=== PATIENT | male | born 1960 | race Caucasian/White ===

== ENCOUNTER 2016-08-20 00:34 | Observation (INO) | payer OTHER ==
[~2016-08-20] VITALS: Ht 182.9 cm; Wt 103.7 kg
[2016-08-20] VITALS (13 sets, daily range): BP systolic 107–167; BP diastolic 66–101; PULSE 59–68; RESP 15–20; TEMP 97.6–99.4; O2SAT 92–97
[~2016-08-20 00:34] MED LIST: AMLO5 PO; ASPI81 PO; ATAC32TA OR; CLOP75 PO; NEXI40CA PO; ROSU10 PO; TOPR100T15 PO
[2016-08-20] MEDS ORDERED: ROSU10 PO (00:52)
[2016-08-20] MEDS ORDERED: AMLO5 PO (00:54)
[2016-08-20] MEDS ORDERED: CAND32TA10 PO (00:54)
[2016-08-20] MEDS ORDERED: NEXI40CA PO (00:54)
[2016-08-20] MEDS ORDERED: ASPI81CH CHEW (00:54)
[2016-08-20] MEDS ORDERED: METO25TA6 PO (00:54)
[2016-08-20] MEDS ORDERED: ONDANSETRON HCL 4 MG/2 ML VIAL IV PUSH ONE (01:00)
[2016-08-20] MEDS ORDERED: HYDROmorphone HCL PF 1 MG/ML VIAL IV PUSH ONE ×2 (01:00→02:15)
[2016-08-20] MEDS ORDERED: SODIUM CHLOR 0.9% 1000 ML INJ 1,000 ML IV ONE (01:00)
[2016-08-20 01:16] LABS: AUTOMATED NEUTROPHIL # 10.6 TH/MM3 (1.8-7.7); BASOPHIL # 0.1 TH/MM3 (0-0.2); BASOPHIL % 0.5 % (0.0-2.0); EOSINOPHIL # 0.1 TH/MM3 (0-0.4); HEMATOCRIT 49.7 % (39.0-51.0); LYMPH % 10.4 % (9.0-44.0); LYMPHOCYTE # 1.3 TH/MM3 (1.0-4.8); MEAN CELL VOLUME 88.9 FL (80.0-100.0); MEAN CORPUSCULAR HEMOGLOBIN 29.6 PG (27.0-34.0); MEAN CORPUSCULAR HGB CONC 33.3 % (32.0-36.0); NEUT % 83.1 % (16.0-70.0); PLATELET COUNT 180 TH/MM3 (150-450); RED BLOOD COUNT 5.59 MIL/MM3 (4.50-5.90); RED CELL DISTRIBUTION WIDTH 12.5 % (11.6-17.2); WHITE BLOOD COUNT 12.7 TH/MM3 (4.0-11.0)
--- NOTE | 2016-08-20 01:18 | PD ---
HPI Chief Complaint: Abdominal Pain Time Seen by Provider: 00:58 Travel History International Travel<30 days: No Contact w/Intl Traveler<30days: No Traveled to known affect area: No History of Present Illness HPI 56-year-old male presents to the emergency department by private transportation the care of his primary care physician and friend Dr. Kulkarni. Patient has had progressively worsening abdominal pain since approximately 10:30 on Friday. Patient has had nausea and anorexia and episodes of vomiting. No hematemesis or coffee-ground emesis. No report of diarrhea. No reported dysuria frequency urgency or hematuria. No prior history of kidney stones. No abdominal surgeries. Patient does not report flank pain. Patient states pain is worsened with movement and ambulation. Patient presents for evaluation of possible appendicitis. Patient denies any chest pain or shortness of breath or sweats. Patient does have prior history of myocardial infarction with normal cardiac catheter reportedly in 2013. Patient is followed by Dr. Clarke. Patient rates pain as 8/10 in intensity and primarily right-sided. No prior history of peptic ulcer disease gastritis pancreatitis biliary colic no report of colitis or diverticulosis/diverticulitis. No fever or chills. PFSH Past Medical History Narrative Medical [place], dyslipidemia, hypertension, cardiac catheterization; no tobacco use, occasional alcohol use; family history premature onset heart disease; nursing notes reviewed Hx Anticoagulant Therapy: Yes (Baby aspirin daily) Heart Rhythm Problems: No Cancer: No Cardiovascular Problems: Yes (embolic [place] 2013) High Cholesterol: Yes Chest Pain: Yes Congestive Heart Failure: No Endocrine: No Genitourinary: No Immune Disorder: No Musculoskeletal: No Neurologic: No Psychiatric: No Reproductive: No Respiratory: No Social History Tobacco Use: No Allergies-Medications (Allergen,Severity, Reaction): Coded Allergies: Iodine (Verified Allergy, Unknown, 08/20/16) Shellfish (Verified Allergy, Unknown, 08/20/16) Sulfa (Verified Allergy, Unknown, 08/20/16) Reported Meds & Prescriptions Reported Meds & Active Scripts Active Reported Aspirin 81 Mg Chew 81 Mg CHEW DAILY Nexium (Esomeprazole DR) 40 Mg Capdr 40 Mg PO DAILY Candesartan (Candesartan Cilexetil) 32 Mg Tab 32 Mg PO DAILY Norvasc (Amlodipine Besylate) 5 Mg Tab 5 Mg PO DAILY Metoprolol Succinate ER 24 HR (Metoprolol Succinate) 25 Mg Tab 25 Mg PO DAILY Crestor (Rosuvastatin Calcium) 10 Mg Tab 10 Mg PO HS Review of Systems Except as stated in HPI: all other systems reviewed are Neg General / Constitutional: No: Fever, Chills HENT: No: Congestion Cardiovascular: No: Chest Pain or Discomfort Respiratory: No: Shortness of Breath Gastrointestinal: Positive: Nausea, Vomiting, Abdominal Pain, Loss of Appetite , No: Diarrhea Genitourinary: Positive: Flank Pain, No: Urgency, Frequency, Dysuria, Hematuria Musculoskeletal: No: Myalgias, Arthralgias Skin: No Rash Neurologic: No: Weakness Psychiatric: No: Anxiety Endocrine: No: Heat Intolerance Hematologic/Lymphatic: No: Easy Bruising Physical Exam Narrative GENERAL: Well-developed well-nourished male in obvious discomfort no respiratory distress; GCS 15 SKIN: Warm and dry. HEAD: Normocephalic. EYES: No scleral icterus. No injection or drainage. NECK: Supple, trachea midline. No JVD or lymphadenopathy. CARDIOVASCULAR: Regular rate and rhythm without murmurs, gallops, or rubs. RESPIRATORY: Breath sounds equal bilaterally. No accessory muscle use. GASTROINTESTINAL: Abdomen soft, tender to palpation right lower quadrant greater than right upper quadrant without rebound or guarding, nondistended. Positive heel strike pain. MUSCULOSKELETAL: No cyanosis, or edema. BACK: Nontender without obvious deformity. Mild right-sided CVA tenderness. Data Data Last Documented VS Vital Signs Date Time Temp Pulse Resp B/P Pulse Ox O2 Delivery O2 Flow Rate FiO2 08/20/16 02:50 65 17 119/81 96 Room Air 08/20/16 00:52 97.8 Orders Complete Blood Count With Diff (08/20/16 00:49) Comprehensive Metabolic Panel (08/20/16 00:49) Urinalysis - C+S If Indicated (08/20/16 00:49) Iv Access Insert/Monitor (08/20/16 00:49) Oximetry (08/20/16 00:49) Lipase (08/20/16 00:49) NPO (08/20/16 00:58) Ondansetron Inj (Zofran Inj) (08/20/16 01:00) Hydromorphone Pf Inj (Dilaudid Pf Inj) (08/20/16 01:00) Electrocardiogram (08/20/16 ) Ct Abd/Pel W/O Iv Contrast (08/20/16 ) Sodium Chlor 0.9% 1000 Ml Inj (Ns 1000 M (08/20/16 01:00) Ckmb (Isoenzyme) Profile (08/20/16 01:08) Troponin I (08/20/16 01:08) CKMB (08/20/16 01:08) CKMB% (08/20/16 01:08) Hydromorphone Pf Inj (Dilaudid Pf Inj) (08/20/16 02:15) Place In Observation (08/20/16 ) Vital Signs (Adult) Q4H (08/20/16 02:48) Activity Oob With Assistance (08/20/16 02:48) Motion Designer / Telemetry .CONTINUOUS (08/20/16 02:48) Diet Npo (08/20/16 Breakfast) Sodium Chlor 0.9% 1000 Ml Inj (Ns 1000 M (08/20/16 02:48) Sodium Chloride 0.9% Flush (Ns Flush) (08/20/16 03:00) Sodium Chloride 0.9% Flush (Ns Flush) (08/20/16 09:00) Ondansetron Inj (Zofran Inj) (08/20/16 03:00) Comprehensive Metabolic Panel (08/21/16 06:00) Complete Blood Count With Diff (08/21/16 06:00) Naloxone Inj (Narcan Inj) (08/20/16 03:00) Consult General Surgery (08/20/16 ) Admit Order (Ed Use Only) (08/20/16 ) ^ Saline Lock (08/20/16 02:49) Resp Oxygen Conner C Titrat 1-4 L (08/20/16 ) Notify Dr: Other (08/20/16 02:49) Sodium Chloride 0.9% Flush (Ns Flush) (08/20/16 09:00) Sodium Chloride 0.9% Flush (Ns Flush) (08/20/16 03:00) Morphine Inj (Morphine Inj) (08/20/16 03:00) Labs Laboratory Tests Test 08/20/16 01:08 White Blood Count 12.7 TH/MM3 Red Blood Count 5.59 MIL/MM3 Hemoglobin 16.6 GM/DL Hematocrit 49.7 % Mean Corpuscular Volume 88.9 FL Mean Corpuscular Hemoglobin 29.6 PG Mean Corpuscular Hemoglobin 33.3 % Concent Red Cell Distribution Width 12.5 % Platelet Count 180 TH/MM3 Mean Platelet Volume 10.6 FL Neutrophils (%) (Auto) 83.1 % Lymphocytes (%) (Auto) 10.4 % Monocytes (%) (Auto) 5.0 % Eosinophils (%) (Auto) 1.0 % Basophils (%) (Auto) 0.5 % Neutrophils # (Auto) 10.6 TH/MM3 Lymphocytes # (Auto) 1.3 TH/MM3 Monocytes # (Auto) 0.6 TH/MM3 Eosinophils # (Auto) 0.1 TH/MM3 Basophils # (Auto) 0.1 TH/MM3 CBC Comment AUTO DIFF Differential Comment AUTO DIFF CONFIRMED Platelet Estimate NORMAL Platelet Morphology Comment CLUMPED Red Cell Morphology Comment NORMAL Urine Color NOLVIA Urine Turbidity CLEAR Urine pH 5.5 Urine Specific Holl[place] 1.030 Urine Protein TRACE mg/dL Urine Glucose (UA) NEG mg/dL Urine Ketones NEG mg/dL Urine Occult Blood LARGE Urine Nitrite NEG Urine Bilirubin NEG Urine Leukocyte Esterase NEG Urine RBC 25-49 /hpf Urine WBC 0-2 /hpf Urine Squamous Epithelial 0-5 /hpf Cells Urine Mucus MOD /lpf Microscopic Urinalysis Comment CULT NOT INDICATED Sodium Level 143 MEQ/L Potassium Level 3.8 MEQ/L Chloride Level 107 MEQ/L Carbon Dioxide Level 27.5 MEQ/L Anion Gap 9 MEQ/L Blood Urea Nitrogen 21 MG/DL Creatinine 1.50 MG/DL Estimat Glomerular Filtration 49 ML/MIN Rate Random Glucose 151 MG/DL Calcium Level 9.5 MG/DL Total Bilirubin 0.5 MG/DL Aspartate Amino Transf 22 U/L (AST/SGOT) Alanine Aminotransferase 32 U/L (ALT/SGPT) Alkaline Phosphatase 85 U/L Total Creatine Kinase 212 U/L Creatine Kinase MB 2.5 NG/ML Troponin I 0.02 NG/ML Total Protein 7.5 GM/DL Albumin 4.4 GM/DL Lipase 77 U/L [facility] Medical Decision Making Medical Screen Exam Complete: Yes Emergency Medical Condition: Yes Medical Record Reviewed: Yes Interpretation(s) EKG normal sinus rhythm rate [address] elevation however inverted T waves anterolaterally are noted Last Impressions Abdomen/Pelvis CT 08/20/16 0000 Signed Impressions: Service Date/Time: Saturday, August 20, 2016 01:17 - CONCLUSION: 1. The appendix diameter is above normal limits, measuring 9 mm. Cannot exclude appendicitis. There is no induration of the fat about the appendix however. 2. 2 mm calcified stone in the distal right ureter causing mild dilation of the right ureter, but no hydronephrosis. No additional stones seen in the collecting system of the right kidney. Yobany Finch MD CBC & BMP Diagram 08/20/16 01:08 UA: large blood troponin I: less than 0.02, not elevated Differential Diagnosis Abdominal pain, appendicitis, renal colic, cholelithiasis, diverticulitis, UTI; also to consider colitis and aortic aneurysm/dissection Narrative Course Patient placed on business development professional IV access obtained specimens collected and sent for resulting EKG performed in view of patient's prior history although at this time no chest pain; no acute ST elevation or injury pattern change noted however patient is identified to have indurated T waves anterolaterally age- indeterminate no ST segment depression; patient administered Zofran 4 mg IV along with Dilaudid 0.5 mg IV maintenance IV fluids and CT abdomen and pelvis ordered CT abdomen and pelvis performed as a noncontrast study in view of large blood noted on urinalysis and flank pain on exam as well as right lower quadrant abdominal pain also patient with reported anaphylaxis reaction to iodine and shellfish. CT abdomen and pelvis consistent with upper limit of normal appendix 9 mm unable to exclude appendicitis however no. Appendiceal stranding also identified to have a 2 mm distal right ureteral stone with hydroureter but no evidence of hydronephrosis. Patient's case discussed with on-call general surgeon food does not feel patient needs to be admitted to the surgical service at this time for appendicitis after he has had the opportunity to review the imaging study on his own suspicious that patient's symptoms are related to his ureterolithiasis. Patient continues to have pain and has had vomiting primary care provider/bedside public relations account executive Dr. Kulkarni is concerned about intractable pain and therefore patient recommended for observation admission. Call placed to [facility] service and patient graciously accepted by Dr. Lee for OBS admission with consult to gen Surgery. Critical Care Narrative Aggregate critical care time was 40 minutes. Time to perform other separately billable procedures was not included in the critical care time. My time did not include minutes spent treating any other patients simultaneously or on activities that did not directly contribute to the patient's treatment. The services I provided to this patient were to treat and/or prevent clinically significant deterioration that could result in: Sepsis, peritonitis, I provided critical care services requiring my management, as noted below: Chart data review, documentation time, medication orders and management, vital sign assessments/reviewing monitor data, ordering and reviewing lab tests, ordering and interpreting/reviewing x-rays and diagnostic studies, care of the patient and discussion of the patient with the admitting physicians. Physician Communication Physician Communication discused with Dr Contreras; discused with Dr Parker; discussed with Dr Lee Diagnosis Primary Impression: Intractable abdominal pain Additional Impressions: Ureterolithiasis Abdominal pain, acute, right lower quadrant Renal insufficiency Admitting Information Admitting Physician Requests: Observation Alia Santiago MD Aug 20, 2016 01:18
[2016-08-20 01:20] LABS: BLOOD, URINE LARGE (NEG); GLUCOSE,URINE NEG (NEG); KETONE, URINE NEG (NEG); NITRITE,URINE NEG (NEG); PH, URINE 5.5 (5.0-8.5)
[2016-08-20 01:22] LABS: HEMO FLAGS AUTO DIFF
[2016-08-20 01:24] LABS: CHLORIDE 107 MEQ/L (98-107); POTASSIUM 3.8 MEQ/L (3.5-5.1); SODIUM (NA) 143 MEQ/L (136-145)
[2016-08-20 01:26] LABS: URINE COLOR AMBER (YELLW/STRAW)
[2016-08-20 01:27] LABS: ANION GAP 9 MEQ/L (5-15); BICARBONATE 27.5 MEQ/L (21.0-32.0); MUCUS URINE MOD /lpf (OCC); SQUAMOUS EPITHELIAL CELL URINE 0-5 /hpf (0-5)
[2016-08-20 01:28] LABS: BLOOD UREA NITROGEN 21 MG/DL (7-18); COMMENT (UR) CULT NOT INDICATED; CULTURE IF INDICATED CULT NOT INDICATED; WBC, URINE 0-2 /hpf (0-5)
[2016-08-20 01:30] LABS: ALT (GPT) 32 U/L (12-78); AST (GOT) 22 U/L (15-37); GLOMERULAR FILTRATION RATE 49 ML/MIN (>89)
[2016-08-20 01:32] LABS: TOTAL BILIRUBIN ADULT 0.5 MG/DL (0.2-1.0)
[2016-08-20 01:33] LABS: ALKALINE PHOSPHATASE 85 U/L (45-117)
[2016-08-20 01:44] LABS: PLATELET ESTIMATE SMEAR NORMAL (NORMAL); PLATELET MORPHOLOGY CLUMPED (NORMAL); SCAN/DIFF AUTO DIFF CONFIRMED
[2016-08-20 01:52] LABS: CREATINE KINASE 212 U/L (39-308)
--- NOTE | 2016-08-20 01:54 | RADRPT ---
EXAM DATE/TIME: 08/20/2016 01:17 [place] COMPARISON: No previous studies available for comparison. INDICATIONS : Right lower quadrant pain. ORAL CONTRAST: No oral contrast ingested. RADIATION DOSE: 19.14 CTDIvol (mGy) MEDICAL HISTORY : Hypertension. Cardiovascular disease SURGICAL HISTORY : None. ENCOUNTER: Initial ACUITY: 1 day PAIN SCALE: 7/10 LOCATION: Right lower quadrant TECHNIQUE: Volumetric scanning of the abdomen and pelvis was performed. Using automated exposure control and ad justment of the mA and/or kV according to patient size, radiation dose was kept as low as reasonably achievable to obtain optimal diagnostic quality images. DICOM format image data is available electro nically for review and comparison. FINDINGS: LOWER LUNGS: The visualized lower lungs are clear. LIVER: Homogeneous density without lesion for noncontrast technique. There is no dilation of the biliary tr ee. No calcified gallstones. SPLEEN: Normal size without lesion. PANCREAS: Within normal limits. KIDNEYS: Normal in size and shape. There is no mass, stone, or hydronephrosis. There is a 2 mm calcification in the distal right ureter, best seen on axial image #73. The right ureter proximal to the calcifie d stone is mildly dilated. No periureteral induration. ADRENAL GLANDS: Within normal limits. VASCULAR: There is no aortic aneurysm. BOWEL/MESENTERY: No dilated loops of small or large bowel. A mild amount of stool seen in the right colon. The appen bev is identified in the right lower quadrant and measures up to 9 mm in width. The fat about the ap pendix has a normal configuration and there is some gas seen within the lumen of the proximal appendi x, but no gas seen in the mid or distal appendix. ABDOMINAL WALL: Within normal limits. RETROPERITONEUM: There is no lymphadenopathy. BLADDER: No wall thickening or mass. REPRODUCTIVE: Within normal limits. INGUINAL: There is no lymphadenopathy or hernia. MUSCULOSKELETAL: Within normal limits for patient age. CONCLUSION: 1. The appendix diameter is above normal limits, measuring 9 mm. Cannot exclude appendicitis. There is no induration of the fat about the appendix however. 2. 2 mm calcified stone in the distal right ureter causing mild dilation of the right ureter, but no hydronephrosis. No additional stones seen in the collecting system of the right kidney. Yobany Finch MD on August 20, 2016 at 1:41 Board Certified Radiologist. This report was verified electronically.
[2016-08-20 02:04] LABS: CKMB 2.5 NG/ML (0.5-3.6)
[2016-08-20] MEDS ORDERED: MORPHINE SULFATE 8 MG/ML INJ IV PUSH PRN (03:00)
[2016-08-20] MEDS ORDERED: ONDANSETRON HCL 4 MG/2 ML VIAL IVP PRN (03:00)
[2016-08-20] MEDS ORDERED: SODIUM CHLORIDE 0.9% FLUSH 10 ML FLUSH IV FLUSH PRN (03:00)
[2016-08-20] MEDS ORDERED: NALOXONE HCL 0.4 MG/ML AMP IV PRN (03:00)
[2016-08-20] MEDS ORDERED: SODIUM CHLORIDE 0.9% FLUSH 10 ML FLUSH IVF PRN (03:00)
[2016-08-20] MEDS ORDERED: KETOROLAC TROMETHAMINE 30 MG/ML (IVP) VIAL IV PUSH ONE (03:00)
[2016-08-20] MEDS: SODIUM CHLOR 0.9% 1000 ML INJ 1,000 ML IV SCH ×3 (03:08→18:22)
[2016-08-20] MEDS: SODIUM CHLORIDE 0.9% FLUSH 10 ML FLUSH IV FLUSH SCH ×2 (08:04→21:37)
[2016-08-20] MEDS ORDERED: SODIUM CHLORIDE 0.9% FLUSH 10 ML FLUSH IV FLUSH SCH (09:00)
[2016-08-20] MEDS ORDERED: traMADol HCL 50 MG TAB PO PRN (11:30)
--- NOTE | 2016-08-20 11:49 | PD.PN.STU ---
Subjective Remarks Patient is 56 year old male admitted for evaluation of acute intractable right sided abdominal pain. Patient states that his pain started yesterday morning as cramping abdominal pain that got progressively worse. His pain is localized to his right side and occasionally radiates to the inside of his right hip. Pain was an 8/10, described as sharp and intermittent. He vomiting 4 times at home yesterday, denies hematemesis. He denied dysuria, urinary frequency or anuria. Denies back pain or flank pain. Denies diarrhea. Denies fevers, chills, muscle aches or recent illness. Pain is worse with movement. He had a decreased appetite but was able to eat a sandwich last night without vomiting. No history of kidney stones. No abdominal surgeries. In the ED an abdominal CT was done and showed 2.2 mm calcified renal stone in the right ureter with mild dilatation of the right ureter. Appendix was measured to be 9mm which is above normal limits and unable to rule out appendicitis. Today his pain is controlled with Tramadol 50mg po, currently the pain is a 2/ 10. He does not have an appetite but is thirsty. Denies nausea or vomiting. Denies chest pain or shortness of breath. PMH: Myocardial infarction 3 years ago with cardiac catheterization, followed by Dr. Clarke. Hypertension Dyslipidemia Medications: Aspirin 81 Mg Chew 81 Mg CHEW DAILY Nexium (Esomeprazole DR) 40 Mg Capdr 40 Mg PO DAILY Candesartan (Candesartan Cilexetil) 32 Mg Tab 32 Mg PO DAILY Norvasc (Amlodipine Besylate) 5 Mg Tab 5 Mg PO DAILY Metoprolol Succinate ER 24 HR (Metoprolol Succinate) 25 Mg Tab 25 Mg PO DAILY Crestor (Rosuvastatin Calcium) 10 Mg Tab 10 Mg PO HS Surgical history: Social: occasional social alcohol use. Denies tobacco or illicit drug use. Family history: Dad- heart disease Brother- heart disease Allergies: Shell fish Iodine Sulfa Objective Vitals Vital Signs Date Time Temp Pulse Resp B/P Pulse Ox O2 Delivery O2 Flow Rate FiO2 08/20/16 06:58 97.6 67 16 147/83 97 Room Air 08/20/16 05:18 66 15 113/75 96 Room Air 08/20/16 03:55 97.8 68 17 123/72 95 Room Air 08/20/16 03:54 17 08/20/16 03:26 96 21 6/27/17 02:50 65 17 119/81 96 Room Air 08/20/16 02:40 17 08/20/16 02:13 61 16 132/77 94 Room Air 08/20/16 01:23 60 17 134/86 Room Air 08/20/16 00:52 97.8 66 18 137/88 97 I/O 08/19/16 08/19/16 08/19/16 08/20/16 08/20/16 08/20/16 07:00 15:00 23:00 07:00 15:00 23:00 Intake Total 1000 ml Output Total 50 ml Balance 1000 ml -50 ml Intake IV Total 1000 ml Output Urine Total 50 ml # Voids 1 Result Diagram: 08/20/16 0108 08/20/16 010 Imaging Vital Signs, 24 Hour Date Time Temp Pulse Resp B/P Pulse Ox O2 Delivery O2 Flow Rate FiO2 08/20/16 06:58 97.6 67 16 147/83 97 Room Air 08/20/16 05:18 66 15 113/75 96 Room Air 08/20/16 03:55 97.8 68 17 123/72 95 Room Air 08/20/16 03:54 17 08/20/16 03:26 96 21 08/20/16 02:50 65 17 119/81 96 Room Air 08/20/16 02:40 17 08/20/16 02:13 61 16 132/77 94 Room Air 08/20/16 01:23 60 17 134/86 Room Air 08/20/16 00:52 97.8 66 18 137/88 97 Allergies Coded Allergies Iodine (Verified Allergy, Unknown, 08/20/16) Shellfish (Verified Allergy, Unknown, 08/20/16) Sulfa (Verified Allergy, Unknown, 08/20/16) Intake/Outtake 08/20/16 08/20/16 11:00 23:00 Intake Total 1000 ml Output Total 50 ml Balance 950 ml Laboratory Tests per Malena Test 08/20/16 01:08 White Blood Count 12.7 TH/MM3 Red Blood Count 5.59 MIL/MM3 Sodium Level 143 MEQ/L Potassium Level 3.8 MEQ/L Blood Urea Nitrogen 21 MG/DL Recent Impressions Abdomen/Pelvis CT 08/20/16 0000 Signed Impressions: Service Date/Time: Saturday, August 20, 2016 01:17 - CONCLUSION: 1. The appendix diameter is above normal limits, measuring 9 mm. Cannot exclude appendicitis. There is no induration of the fat about the appendix however. 2. 2 mm calcified stone in the distal right ureter causing mild dilation of the right ureter, but no hydronephrosis. No additional stones seen in the collecting system of the right kidney. Yobany Finch MD Active Scripts Active Reported Aspirin 81 Mg Chew 81 Mg CHEW DAILY Nexium (Esomeprazole DR) 40 Mg Capdr 40 Mg PO DAILY Candesartan (Candesartan Cilexetil) 32 Mg Tab 32 Mg PO DAILY Norvasc (Amlodipine Besylate) 5 Mg Tab 5 Mg PO DAILY Metoprolol Succinate ER 24 HR (Metoprolol Succinate) 25 Mg Tab 25 Mg PO DAILY Crestor (Rosuvastatin Calcium) 10 Mg Tab 10 Mg PO HS Objective Remarks GENERAL: well appearing male in no acute distress SKIN: Warm and dry. HEAD: Normocephalic. EYES: No scleral icterus. No injection or drainage. NECK: Supple, trachea midline. No JVD or lymphadenopathy. CARDIOVASCULAR: Regular rate and rhythm without murmurs, gallops, or rubs. RESPIRATORY: Breath sounds equal bilaterally. No accessory muscle use. GASTROINTESTINAL: Abdomen soft, nondistended. Moderate abdominal pain elicited with palpation of right lower quadrant. No rebound tenderness or guarding. MUSCULOSKELETAL: No cyanosis, or edema. BACK: Nontender without obvious deformity. No CVA tenderness. A/P Assessment and Plan 1. Intractable abdominal pain - most likely due to ureterolithiasis - CT scan showed 2.2 mm right uretal stone with mild dilatation of right ureter. Appendix 9mm. - improved with IV NS and tramadol 50mg - continue supportive care and pain management, follow WBC count and vital signs - Recheck CBC and BMP in am 2. Hyperglycemia - no history of diabetes - check Hb A1C 3. MARY - Creatinine 1.5 - most likely due to dehydration and vomiting - continue IV NS and monitor trend, avoid nephrotoxins Stephanie Cantu M3 Aug 20, 2016 11:49
--- NOTE | 2016-08-20 17:22 | EKG ---
Date Performed: 08/20/2016 Time Performed: 01:12:52 PTAGE: 56 years EKG: Sinus rhythm LOW QRS VOLTAGE IN EXTREMITY LEADS MODERATE T-WAVE ABNORMALITY, CONSIDER ANTEROLATERAL ISCHEMIA ABNO RMAL ECG PREVIOUS TRACING : 11/09/2013 05.39 Compared to prior tracing no significant change DOCTOR: Alexander Daley Interpretating Date/Time 08/20/2016 17:19:53
[2016-08-20] MEDS ORDERED: KETOROLAC TROMETHAMINE 30 MG/ML (IVP) VIAL IV PUSH PRN ×2 (18:30)
--- NOTE | 2016-08-20 18:35 | HHI.HP ---
HPI Service [facility] Hospitalists Primary Care Physician Blake Kulkarni MD Admission Diagnosis intractable pain; 2mm ureterolithiasis; RLQ pain Diagnoses: Chief Complaint: Right lower quadrant abdominal pain Travel History International Travel<30 Days: No Contact w/Intl Traveler <30 Da: No Traveled to Known Affected Are: No History of Present Illness Deferred entry, patient seen earlier at around noon. This is a 56-year-old male who presented to [facility] complaining of right lower quadrant abdominal pain. Patient states pain started the day prior to admission and it is described as a colicky, cramping, sharp pain that progressively got worst. The pain is localized to the right lower quadrant and occasionally radiates down to the right hip. Patient states pain was severe 8/ 10 in intensity. Associated with nausea and vomiting 4 times yesterday. The patient however denies hematemesis. He denies dysuria, urinary frequency or anuria. The patient denies fevers or chills, diarrhea. The patient states he has decreased appetite but was able to eat a sandwich last night without vomiting. Patient denies history of kidney stones, no abdominal surgeries. Patient states that pain is better when compared to when he presented to this hospital. In the ED the patient had an abdominal CT which was done and showed 2.2 mm calcified renal stone in the right ureter with mild dilatation of the right ureter. Appendix was measured to be 9 mm which is above normal limits and unable to rule out appendicitis. The patient kept having intractable abdominal pain and therefore was placed under observation by the emergency department physician. Review of Systems As per history of present illness, other systems reviewed by me and negative Past Family Social History Past Medical History Myocardial infarction 3 years ago with cardiac catheterization Hypertension Hyperlipidemia Past Surgical History Denies any previous abdominal surgeries. Reported Medications Aspirin 81 Mg Chew 81 Mg CHEW DAILY Nexium (Esomeprazole DR) 40 Mg Capdr 40 Mg PO DAILY Candesartan (Candesartan Cilexetil) 32 Mg Tab 32 Mg PO DAILY Norvasc (Amlodipine Besylate) 5 Mg Tab 5 Mg PO DAILY Metoprolol Succinate ER 24 HR (Metoprolol Succinate) 25 Mg Tab 25 Mg PO DAILY Crestor (Rosuvastatin Calcium) 10 Mg Tab 10 Mg PO HS Allergies: Coded Allergies: Iodine (Verified Allergy, Unknown, 08/20/16) Shellfish (Verified Allergy, Unknown, 08/20/16) Sulfa (Verified Allergy, Unknown, 08/20/16) Active Ordered Medications Current Medications Medications (Trade) Dose Ordered Sig/Susy Route Start Time Stop Time Status Last Admin (NS 1000 ml Inj) 1,000 ml @ 125 mls/hr Q8H IV 08/20/16 02:48 08/20/16 11:17 (NS Flush) 2 ml UNSCH PRN IV FLUSH 08/20/16 03:00 (NS Flush) 2 ml BID IV FLUSH 08/20/16 09:00 (Zofran Inj) 4 mg Q6H PRN IVP 08/20/16 03:00 (Narcan Inj) 0.4 mg UNSCH PRN IV 08/20/16 03:00 (Morphine Inj) 2 mg Q3H PRN IV PUSH 08/20/16 03:00 (Ultram) 50 mg Q4H PRN PO 08/20/16 11:30 08/20/16 15:32 Family History Patient's father and brother had heart disease. Social History The patient denies tobacco use. Admits to social alcohol. Denies illicit drug use. Physical Exam Vital Signs Vital Signs Date Time Temp Pulse Resp B/P Pulse Ox O2 Delivery O2 Flow Rate FiO2 08/20/16 16:33 98.2 59 18 167/101 96 08/20/16 12:24 97.6 62 19 144/93 95 08/20/16 08:00 96 21 08/20/16 06:58 97.6 67 16 147/83 97 Room Air 08/20/16 05:18 66 15 113/75 96 Room Air 08/20/16 03:55 97.8 68 17 123/72 95 Room Air 08/20/16 03:54 17 08/20/16 03:26 96 21 08/20/16 02:50 65 17 119/81 96 Room Air 08/20/16 02:40 17 08/20/16 02:13 61 16 132/77 94 Room Air 08/20/16 01:23 60 17 134/86 Room Air 08/20/16 00:52 97.8 66 18 137/88 97 Physical Exam GENERAL: This is a well-nourished, well-developed patient, in no apparent distress. SKIN: No rashes, ecchymoses or lesions. Cool and dry. HEAD: Atraumatic. Normocephalic. No temporal or scalp tenderness. EYES: Pupils equal round and reactive. Extraocular motions intact. No scleral icterus. No injection or drainage. ENT: Nose without bleeding, purulent drainage or septal hematoma. Throat without erythema, tonsillar hypertrophy or exudate. Uvula midline. Airway patent. NECK: Trachea midline. No JVD or lymphadenopathy. Supple, nontender, no meningeal signs. CARDIOVASCULAR: Regular rate and rhythm without murmurs, gallops, or rubs. RESPIRATORY: Clear to auscultation. Breath sounds equal bilaterally. No wheezes , rales, or rhonchi. GASTROINTESTINAL: Abdomen soft, moderately tender to palpation in the right lower quadrant, nondistended. No hepato-splenomegaly, or palpable masses. No guarding. MUSCULOSKELETAL: Extremities without clubbing, cyanosis, or edema. No joint tenderness, effusion, or edema noted. No calf tenderness. Negative Homans sign bilaterally. NEUROLOGICAL: Awake and alert. Cranial nerves II through XII intact. Motor and sensory grossly within normal limits. Five out of 5 muscle strength in all muscle groups. Normal speech. Laboratory Laboratory Tests Test 08/20/16 01:08 White Blood Count 12.7 Red Blood Count 5.59 Hemoglobin 16.6 Hematocrit 49.7 Mean Corpuscular Volume 88.9 Mean Corpuscular Hemoglobin 29.6 Mean Corpuscular Hemoglobin 33.3 Concent Red Cell Distribution Width 12.5 Platelet Count 180 Mean Platelet Volume 10.6 Neutrophils (%) (Auto) 83.1 Lymphocytes (%) (Auto) 10.4 Monocytes (%) (Auto) 5.0 Eosinophils (%) (Auto) 1.0 Basophils (%) (Auto) 0.5 Neutrophils # (Auto) 10.6 Lymphocytes # (Auto) 1.3 Monocytes # (Auto) 0.6 Eosinophils # (Auto) 0.1 Basophils # (Auto) 0.1 CBC Comment AUTO DIFF Differential Comment AUTO DIFF CONFIRMED Platelet Estimate NORMAL Platelet Morphology Comment CLUMPED Red Cell Morphology Comment NORMAL Urine Color NOLVIA Urine Turbidity CLEAR Urine pH 5.5 Urine Specific [place] 1.030 Urine Protein TRACE Urine Glucose (UA) NEG Urine Ketones NEG Urine Occult Blood LARGE Urine Nitrite NEG Urine Bilirubin NEG Urine Leukocyte Esterase NEG Urine RBC 25-49 Urine WBC 0-2 Urine Squamous Epithelial 0-5 Cells Urine Mucus MOD Microscopic Urinalysis Comment CULT NOT INDICATED Sodium Level 143 Potassium Level 3.8 Chloride Level 107 Carbon Dioxide Level 27.5 Anion Gap 9 Blood Urea Nitrogen 21 Creatinine 1.50 Estimat Glomerular Filtration 49 Rate Random Glucose 151 Calcium Level 9.5 Total Bilirubin 0.5 Aspartate Amino Transf 22 (AST/SGOT) Alanine Aminotransferase 32 (ALT/SGPT) Alkaline Phosphatase 85 Total Creatine Kinase 212 Creatine Kinase MB 2.5 Troponin I 0.02 Total Protein 7.5 Albumin 4.4 Lipase 77 Result Diagram: 08/20/16 0108 08/20/16 0108 Imaging Last Impressions Abdomen/Pelvis CT 08/20/16 0000 Signed Impressions: Service Date/Time: Saturday, August 20, 2016 01:17 - CONCLUSION: 1. The appendix diameter is above normal limits, measuring 9 mm. Cannot exclude appendicitis. There is no induration of the fat about the appendix however. 2. 2 mm calcified stone in the distal right ureter causing mild dilation of the right ureter, but no hydronephrosis. No additional stones seen in the collecting system of the right kidney. Yobany Finch MD Reviewed personally by me Assessment and Plan Problem List: (1) Abdominal pain, acute, right lower quadrant ICD Code: R10.31 Status: Acute Plan: Right lower quadrant likely secondary to ureterolithiasis. CT scan of the abdomen and pelvis showed a 2.2 mm right ureteral stone with mild dilatation of the right ureter. Appendix measured 9 mm. Pain is improved with IV normal saline Provide pain control with IV Toradol. Continue supportive care, IV fluids and pain control. Recheck CBC, BMP in a.m. Neurosurgery consulted earlier Will keep nothing by mouth up to the patient is simulated by general surgery. If the patient is not related anti-related today I will resume diet. (2) Intractable abdominal pain ICD Code: R10.9 Status: Acute Plan: As above. (3) MARY (acute kidney injury) ICD Code: N17.9 Status: Acute Plan: Creatinine elevated at 1.5. Likely. Azotemia from dehydration and vomiting. Continue IV normal saline and continue to monitor BUN/creatinine, avoid nephrotoxins, strict I's and O's. (4) Leukocytosis ICD Code: D72.829 Status: Acute Plan: Likely stress related, no signs of active infection. Continue to monitor CBC with differential. (5) Ureterolithiasis ICD Code: N20.1 Status: Acute Plan: . As seen on CT scan of the abdomen, continue IV normal saline, I will start the patient on Flomax to aid in the passage of the kidney stone. Urinalysis positive for red blood cells. Strain urine. (6) Uncontrolled hypertension ICD Code: I10 Status: Acute Plan: The patient has a very elevated blood pressure with a systolic blood pressure in the high 160s systolic. Hold BRANT inhibitor due to acute kidney injury, continue metoprolol succinate and amlodipine. (7) Hyperlipidemia ICD Code: E78.5 Status: Acute Plan: Continue statin. (8) CAD (coronary artery disease) ICD Code: I25.10 Status: Acute Plan: Hold aspirin, BRANT inhibitor, continue beta ivett. The patient is chest pain-free. Assessment and Plan GI prophylaxis: PPI. DVT prophylaxis: SCDs Code Status Full code Discussed Condition With Patient Problem Qualifiers (1) Leukocytosis: Qualified Code: D72.829 - Leukocytosis, unspecified type (2) Hyperlipidemia: Qualified Code: E78.5 - Hyperlipidemia, unspecified hyperlipidemia type (3) CAD (coronary artery disease): Chirag Vale MD Aug 20, 2016 18:35
--- NOTE | 2016-08-20 19:13 | PD.CONS ---
[facility] Service General Surgery Consult Requested By Dr. Lee Reason for Consult ? appendicitis Primary Care Physician Blake Kulkarni MD History of Present Illness The patient is a 56-year-old male who developed severe right sided abdominal pain yesterday associated with nausea and vomiting. He was also radiating to the right flank. He was evaluated in the emergency department and noted to have severe right lower quadrant tenderness as well as leukocytosis of 12,000, microscopic hematuria, and CT scan of the abdomen and pelvis which revealed a 2 mm ureteral stone on the right as well as a 9 mm appendix. There was no inflammatory changes around the appendix. I reviewed the images. The patient' s primary physician is Dr. Kulkarni who was present with him in the emergency department. I did discuss the case with Dr. Santiago and Dr. Kulkarni when the patient was in the ED. He required admission due to intractable pain, nausea, and vomiting. My suspicion for appendicitis was low. Review of Systems Constitutional: DENIES: Fever, Chills Eyes: DENIES: Eye inflammation, Eye pain Ears, nose, mouth, throat: DENIES: Oral lesions, Throat pain Respiratory: DENIES: Cough, Shortness of breath Cardiovascular: DENIES: Chest pain, Palpitations Gastrointestinal: COMPLAINS OF: Abdominal pain, Nausea Musculoskeletal: DENIES: Muscle aches, Stiffness Integumentary: DENIES: Pruritus, Rash Neurologic: DENIES: Seizures, Speech Problems Past Family Social History Past Medical History Myocardial infarction 3 years ago with cardiac catheterization Hypertension Hyperlipidemia Past Surgical History No abdominal surgeries Reported Medications Reported Meds & Active Scripts Active Reported Aspirin 81 Mg Chew 81 Mg CHEW DAILY Nexium (Esomeprazole DR) 40 Mg Capdr 40 Mg PO DAILY Candesartan (Candesartan Cilexetil) 32 Mg Tab 32 Mg PO DAILY Norvasc (Amlodipine Besylate) 5 Mg Tab 5 Mg PO DAILY Metoprolol Succinate ER 24 HR (Metoprolol Succinate) 25 Mg Tab 25 Mg PO DAILY Crestor (Rosuvastatin Calcium) 10 Mg Tab 10 Mg PO HS Allergies: Coded Allergies: Iodine (Verified Allergy, Unknown, 08/20/16) Shellfish (Verified Allergy, Unknown, 08/20/16) Sulfa (Verified Allergy, Unknown, 08/20/16) Active Ordered Medications Current Medications Medications (Trade) Dose Ordered Sig/Susy Route Start Time Stop Time Status Last Admin (NS 1000 ml Inj) 1,000 ml @ 125 mls/hr Q8H IV 08/20/16 02:48 08/20/16 18:22 (NS Flush) 2 ml UNSCH PRN IV FLUSH 08/20/16 03:00 (NS Flush) 2 ml BID IV FLUSH 08/20/16 09:00 (Zofran Inj) 4 mg Q6H PRN IVP 08/20/16 03:00 (Narcan Inj) 0.4 mg UNSCH PRN IV 08/20/16 03:00 (Toradol Inj) 15 mg Q6H PRN IV PUSH 08/20/16 18:30 UNV (Toradol Inj) 30 mg Q6H PRN IV PUSH 08/20/16 18:30 UNV (Norvasc) 5 mg DAILY PO 08/20/16 18:30 UNV (Toprol Xl) 25 mg DAILY PO 08/20/16 18:30 UNV Non-Formulary Medication 40 mg DAILY PO 08/20/16 18:30 UNV Non-Formulary Medication 10 mg HS PO 08/20/16 21:00 UNV Family History Noncontributory Social History Occasional ETOH use. No tobacco or drug use. He is present with his . Physical Exam Vital Signs Vital Signs Date Time Temp Pulse Resp B/P Pulse Ox O2 Delivery O2 Flow Rate FiO2 08/20/16 16:33 98.2 59 18 167/101 96 08/20/16 12:24 97.6 62 19 144/93 95 08/20/16 08:00 96 21 08/20/16 06:58 97.6 67 16 147/83 97 Room Air 08/20/16 05:18 66 15 113/75 96 Room Air 08/20/16 03:55 97.8 68 17 123/72 95 Room Air 08/20/16 03:54 17 08/20/16 03:26 96 21 08/20/16 02:50 65 17 119/81 96 Room Air 08/20/16 02:40 17 08/20/16 02:13 61 16 132/77 94 Room Air 08/20/16 01:23 60 17 134/86 Room Air 08/20/16 00:52 97.8 66 18 137/88 97 Physical Exam GENERAL: Awake and alert. No acute distress. Cooperative. HEAD: Normocephalic. Atraumatic. EYES: Pupils equal round and reactive to light bilaterally. No scleral icterus. CHEST: Nonlabored breathing. CARDIOVASCULAR: Regular rate and rhythm. ABDOMEN: Soft nondistended. No previous scars. Mild right lower quadrant tenderness to deep palpation and mild right flank tenderness. EXTREMITIES: No cyanosis or edema. SKIN: Warm, dry, nonjaundiced. Laboratory Laboratory Tests Test 08/20/16 01:08 White Blood Count 12.7 Red Blood Count 5.59 Hemoglobin 16.6 Hematocrit 49.7 Mean Corpuscular Volume 88.9 Mean Corpuscular Hemoglobin 29.6 Mean Corpuscular Hemoglobin 33.3 Concent Red Cell Distribution Width 12.5 Platelet Count 180 Mean Platelet Volume 10.6 Neutrophils (%) (Auto) 83.1 Lymphocytes (%) (Auto) 10.4 Monocytes (%) (Auto) 5.0 Eosinophils (%) (Auto) 1.0 Basophils (%) (Auto) 0.5 Neutrophils # (Auto) 10.6 Lymphocytes # (Auto) 1.3 Monocytes # (Auto) 0.6 Eosinophils # (Auto) 0.1 Basophils # (Auto) 0.1 CBC Comment AUTO DIFF Differential Comment AUTO DIFF CONFIRMED Platelet Estimate NORMAL Platelet Morphology Comment CLUMPED Red Cell Morphology Comment NORMAL Urine Color NOLVIA Urine Turbidity CLEAR Urine pH 5.5 Urine Specific [place] 1.030 Urine Protein TRACE Urine Glucose (UA) NEG Urine Ketones NEG Urine Occult Blood LARGE Urine Nitrite NEG Urine Bilirubin NEG Urine Leukocyte Esterase NEG Urine RBC 25-49 Urine WBC 0-2 Urine Squamous Epithelial 0-5 Cells Urine Mucus MOD Microscopic Urinalysis Comment CULT NOT INDICATED Sodium Level 143 Potassium Level 3.8 Chloride Level 107 Carbon Dioxide Level 27.5 Anion Gap 9 Blood Urea Nitrogen 21 Creatinine 1.50 Estimat Glomerular Filtration 49 Rate Random Glucose 151 Calcium Level 9.5 Total Bilirubin 0.5 Aspartate Amino Transf 22 (AST/SGOT) Alanine Aminotransferase 32 (ALT/SGPT) Alkaline Phosphatase 85 Total Creatine Kinase 212 Creatine Kinase MB 2.5 Troponin I 0.02 Total Protein 7.5 Albumin 4.4 Lipase 77 Result Diagram: 08/20/1610708/20/16107 Imaging Last Impressions Abdomen/Pelvis CT 08/20/16 0000 Signed Impressions: Service Date/Time: Saturday, August 20, 2016 01:17 - CONCLUSION: 1. The appendix diameter is above normal limits, measuring 9 mm. Cannot exclude appendicitis. There is no induration of the fat about the appendix however. 2. 2 mm calcified stone in the distal right ureter causing mild dilation of the right ureter, but no hydronephrosis. No additional stones seen in the collecting system of the right kidney. Yobany Finch MD Assessment and Plan Assessment and Plan 56-year-old male with right lower quadrant pain and tenderness and CT revealing 2 mm ureteral stone and slightly enlarged appendix. I think that the patient's ureteral stone explains his symptoms. The patient required admission for intractable pain as well as nausea and vomiting. He is now feeling better. I'm okay with discharge if he can tolerate some oral intake this evening. He will be aware that if he has fevers or severe worsening of abdominal pain he should call his physician or present to the emergency department. Discussed Condition With Johnathan Ambrosio Dr., Dr., MD Aug 20, 2016 19:13
[2016-08-20] MEDS ORDERED: TRAM50TA PO (20:34)
[2016-08-20] MEDS ORDERED: ATORVASTATIN 20 MG TAB PO SCH (21:00)
[2016-08-20 21:07] LABS: POTASSIUM 3.4 MEQ/L (3.5-5.1)
[2016-08-20 21:13] LABS: BICARBONATE 29.4 MEQ/L (21.0-32.0)
[2016-08-20] MEDS: METOPROLOL SUCCINATE 25 MG EXTENDED RELEASE TAB PO SCH (21:37)
[2016-08-20] MEDS: amLODIPine BESYLATE 5 MG TAB PO SCH (21:37)
[2016-08-20] MEDS: PANTOPRAZOLE SOD 40 MG DELAYED RELEASE TAB PO SCH (21:40)
[2016-08-20 21:53] LABS: HEMATOCRIT 43.3 % (39.0-51.0); MEAN CELL VOLUME 89.6 FL (80.0-100.0); MEAN CORPUSCULAR HEMOGLOBIN 30.4 PG (27.0-34.0); PLATELET COUNT 159 TH/MM3 (150-450); RED BLOOD COUNT 4.83 MIL/MM3 (4.50-5.90); RED CELL DISTRIBUTION WIDTH 12.5 % (11.6-17.2); REVIEW FLAG FINAL; WHITE BLOOD COUNT 9.3 TH/MM3 (4.0-11.0)
[2016-08-20] MEDS ORDERED: DEXTROSE 50% IN WATER 50 ML VIAL(D50) IV PRN (22:15)
[2016-08-20] MEDS ORDERED: GLUCAGON 1 MG/ML VIAL OTHER PRN (22:15)
[2016-08-21] VITALS: BP 141/87; PULSE 64; RESP 20; TEMP 97.9; O2SAT 94
[2016-08-21] MEDS: SODIUM CHLOR 0.9% 1000 ML INJ 1,000 ML IV SCH ×2 (05:04→10:48)
[2016-08-21] MEDS: INSULIN ASPART SUPPLEMENTAL SCALE SQ SCH ×2 (05:07→11:00)
[2016-08-21 05:25] LABS: CHLORIDE 110 MEQ/L (98-107); POTASSIUM 3.6 MEQ/L (3.5-5.1); SODIUM (NA) 146 MEQ/L (136-145)
[2016-08-21 05:50] LABS: AUTOMATED NEUTROPHIL # 5.5 TH/MM3 (1.8-7.7); BASOPHIL % 0.6 % (0.0-2.0); EOSINOPHIL # 0.2 TH/MM3 (0-0.4); EOSINOPHIL % 2.4 % (0.0-4.0); HEMATOCRIT 40.3 % (39.0-51.0); LYMPH % 21.2 % (9.0-44.0); LYMPHOCYTE # 1.7 TH/MM3 (1.0-4.8); MEAN CELL VOLUME 88.9 FL (80.0-100.0); MEAN CORPUSCULAR HGB CONC 34.9 % (32.0-36.0); MONO % 8.9 % (0.0-8.0); NEUT % 66.9 % (16.0-70.0); PLATELET COUNT 120 TH/MM3 (150-450); RED BLOOD COUNT 4.53 MIL/MM3 (4.50-5.90); RED CELL DISTRIBUTION WIDTH 12.3 % (11.6-17.2); WHITE BLOOD COUNT 8.1 TH/MM3 (4.0-11.0)
[2016-08-21 06:20] LABS: HEMO FLAGS DIFF FINAL
[2016-08-21 06:26] LABS: ALKALINE PHOSPHATASE 55 U/L (45-117); ALT (GPT) 27 U/L (12-78); ANION GAP 7 MEQ/L (5-15); AST (GOT) 19 U/L (15-37); BICARBONATE 29.1 MEQ/L (21.0-32.0); BLOOD UREA NITROGEN 20 MG/DL (7-18); GLOMERULAR FILTRATION RATE 63 ML/MIN (>89); TOTAL BILIRUBIN ADULT 0.7 MG/DL (0.2-1.0)
[2016-08-21 08:00] VITALS: BP 137/83; PULSE 60; RESP 18; TEMP 96.3; O2SAT 95
[2016-08-21] MEDS: SODIUM CHLORIDE 0.9% FLUSH 10 ML FLUSH IV FLUSH SCH (09:00)
--- NOTE | 2016-08-21 09:28 | PD.PN.STU ---
Subjective Remarks Patient is feeling better today. Currently has no pain. Has not had pain medication since 3pm yesterday. He has not passed the stone yet. Denies dysuria , difficulty urinating or blood in his urine. He ate last night without nausea or vomiting. Objective Vitals Vital Signs Date Time Temp Pulse Resp B/P Pulse Ox O2 Delivery O2 Flow Rate FiO2 08/21/16 08:00 96.3 60 18 137/83 95 08/21/16 00:00 97.9 64 20 141/87 94 08/20/16 20:00 99.4 65 20 150/91 94 08/20/16 19:40 92 21 08/20/16 16:33 98.2 59 18 167/101 96 08/20/16 12:24 97.6 62 19 144/93 95 I/O 08/20/16 08/20/16 08/20/16 08/21/16 08/21/16 08/21/16 07:00 15:00 23:00 07:00 15:00 23:00 Intake Total 1000 ml 0 ml 1640 ml Output Total 50 ml 800 ml 500 ml Balance 1000 ml -50 ml -800 ml 1140 ml Intake Oral 0 ml 740 ml IV Total 1000 ml 900 ml Output Urine Total 50 ml 800 ml 500 ml # Voids 1 Result Diagram: 08/21/16 0450 08/21/16 0450 Objective Remarks GENERAL: pleasant well-appearing, well-nourished male. SKIN: Warm and dry. HEAD: Normocephalic. EYES: No scleral icterus. No injection or drainage. NECK: Supple, trachea midline. No JVD or lymphadenopathy. CARDIOVASCULAR: Regular rate and rhythm without murmurs, gallops, or rubs. RESPIRATORY: Breath sounds equal bilaterally. No accessory muscle use. GASTROINTESTINAL: Abdomen soft, non-tender, nondistended. MUSCULOSKELETAL: No cyanosis, or edema. BACK: Nontender without obvious deformity. No CVA tenderness. A/P Assessment and Plan Intractable abdominal pain - most likely due to ureterolithiasis - CT scan showed 2.2 mm right uretal stone with mild dilatation of right ureter. Appendix 9mm. - improved with IV NS and tramadol 50mg - continue supportive care and pain management, follow WBC count and vital signs - Currently asymptomatic, pain has improved - surgery consulted yesterday for appendicitis evaluation, cleared by surgery due to low suspicion of appendicitis MARY - Creatinine 1.5 - most likely due to dehydration and vomiting - continue IV NS and monitor trend, avoid nephrotoxins Uncontrolled hypertension - The patient had a very elevated blood pressure with a systolic blood pressure in the high 160s systolic. - Held BRANT inhibitor due to acute kidney injury, continue metoprolol succinate and amlodipine. - Blood pressure improved Hyperlipidemia: - Continue statin. CAD: - Hold aspirin, BRANT inhibitor, continue beta ivett. The patient is chest pain -free. Discharge Planning Ready for dc this am Stephanie Cantu M3 Aug 21, 2016 09:27
[2016-08-21] MEDS: METOPROLOL SUCCINATE 25 MG EXTENDED RELEASE TAB PO SCH (09:53)
[2016-08-21] MEDS: amLODIPine BESYLATE 5 MG TAB PO SCH (09:53)
[2016-08-21] MEDS: PANTOPRAZOLE SOD 40 MG DELAYED RELEASE TAB PO SCH (09:53)
[2016-08-21 10:09] VITALS: O2SAT 95
--- NOTE | 2016-08-21 11:28 | HHI.DCPOC ---
Discharge Care Plan Diagnosis: (1) Intractable abdominal pain (2) Uncontrolled hypertension (3) Abdominal pain, acute, right lower quadrant (4) MARY (acute kidney injury) (5) Leukocytosis (6) Hyperlipidemia (7) CAD (coronary artery disease) (8) Ureterolithiasis Goals to Promote Your Health * To prevent worsening of your condition and complications * To maintain your health at the optimal level Directions to Meet Your Goals Take your medications as prescribed Follow your dietary instruction Follow activity as directed Keep your appointments as scheduled Take your immunizations and boosters as scheduled If your symptoms worsen call your PCP, if no PCP go to Urgent Care Center or Emergency Room Smoking is Dangerous to Your Health. Avoid second hand smoke Call the 24-hour hour crisis hotline for domestic abuse at Chirag Vale MD Aug 21, 2016 11:28
--- NOTE | 2016-08-21 11:33 | HHI.DS ---
Discharge Summary Admission Date Aug 20, 2016 at 02:51 Discharge Date: Aug 21, 2016 Admitting Diagnosis intractable pain; 2mm ureterolithiasis; RLQ pain (1) Renal colic on right side ICD Code: N23 (2) Abdominal pain, acute, right lower quadrant ICD Code: R10.31 Diagnosis: Principal (3) Intractable abdominal pain ICD Code: R10.9 Diagnosis: Principal (4) MARY (acute kidney injury) ICD Code: N17.9 Diagnosis: Principal (5) Leukocytosis ICD Code: D72.829 Diagnosis: Principal (6) Ureterolithiasis ICD Code: N20.1 Diagnosis: Principal (7) Uncontrolled hypertension ICD Code: I10 Diagnosis: Principal (8) Hyperlipidemia ICD Code: E78.5 Diagnosis: Secondary (9) CAD (coronary artery disease) ICD Code: I25.10 Diagnosis: Secondary Procedures None Brief History - From Admission Deferred entry, patient seen earlier at around noon. This is a 56-year-old male who presented to [facility] complaining of right lower quadrant abdominal pain. Patient states pain started the day prior to admission and it is described as a colicky, cramping, sharp pain that progressively got worst. The pain is localized to the right lower quadrant and occasionally radiates down to the right hip. Patient states pain was severe 8/ 10 in intensity. Associated with nausea and vomiting 4 times yesterday. The patient however denies hematemesis. He denies dysuria, urinary frequency or anuria. The patient denies fevers or chills, diarrhea. The patient states he has decreased appetite but was able to eat a sandwich last night without vomiting. Patient denies history of kidney stones, no abdominal surgeries. Patient states that pain is better when compared to when he presented to this hospital. In the ED the patient had an abdominal CT which was done and showed 2.2 mm calcified renal stone in the right ureter with mild dilatation of the right ureter. Appendix was measured to be 9 mm which is above normal limits and unable to rule out appendicitis. The patient kept having intractable abdominal pain and therefore was placed under observation by the emergency department physician. CBC/BMP: 08/21/16 0450 08/21/16 0450 Significant Findings Laboratory Tests Test 08/20/16 08/20/16 08/21/16 01:08 20:52 04:50 White Blood Count 12.7 TH/MM3 (4.0-11.0) Neutrophils (%) (Auto) 83.1 % (16.0-70.0) Neutrophils # (Auto) 10.6 TH/MM3 (1.8-7.7) Platelet Morphology Comment CLUMPED (NORMAL) Urine Color NOLVIA (YELLW/STRAW) Urine Occult Blood LARGE (NEG) Urine RBC 25-49 /hpf (0-3) Urine Mucus MOD /lpf (OCC) Blood Urea Nitrogen 21 MG/DL (7-18) 24 MG/DL (7-18) 20 MG/DL (7-18) Creatinine 1.50 MG/DL 1.40 MG/DL (0.60-1.30) (0.60-1.30) Estimat Glomerular Filtration 49 ML/MIN (>89) 53 ML/MIN (>89) 63 ML/MIN (>89) Rate Random Glucose 151 MG/DL 161 MG/DL (74-106) (74-106) Mean Platelet Volume 11.1 FL (7.0-11.0) Potassium Level 3.4 MEQ/L (3.5-5.1) Chloride Level 108 MEQ/L 110 MEQ/L (98-107) (98-107) Calcium Level 8.1 MG/DL 7.7 MG/DL (8.5-10.1) (8.5-10.1) Platelet Count 120 TH/MM3 (150-450) Monocytes (%) (Auto) 8.9 % (0.0-8.0) Sodium Level 146 MEQ/L (136-145) Total Protein 5.7 GM/DL (6.4-8.2) Albumin 3.2 GM/DL (3.4-5.0) Imaging Last Impressions Abdomen/Pelvis CT 08/20/16 0000 Signed Impressions: Service Date/Time: Saturday, August 20, 2016 01:17 - CONCLUSION: 1. The appendix diameter is above normal limits, measuring 9 mm. Cannot exclude appendicitis. There is no induration of the fat about the appendix however. 2. 2 mm calcified stone in the distal right ureter causing mild dilation of the right ureter, but no hydronephrosis. No additional stones seen in the collecting system of the right kidney. Yobany Finch MD Pt update on day of discharge Patient states the pain is almost resolved. Denies fevers or chills, denies nausea or vomiting. Patient has been cleared by Gen. surgery. Symptoms likely secondary to renal colic due to ureterolithiasis. I will restart diet, the patient may be able to be discharged after he tolerates diet. Hospital Course (1) Abdominal pain, acute, right lower quadrant Right lower quadrant likely secondary to ureterolithiasis. CT scan of the abdomen and pelvis showed a 2.2 mm right ureteral stone with mild dilatation of the right ureter. Appendix measured 9 mm. Patient was started on IV fluids and pain control with tramadol and patient placed on IV Toradol for which the patient did not get those. Gen. surgery consulted, the patient to discharge home and I'm concerned that the pain could be related to appendicitis. (2) Intractable abdominal pain Plan: As above. Pain resolved prior to discharge. (3) MARY (acute kidney injury) Creatinine elevated at 1.5. On admission. Likely due to prerenal azotemia from dehydration and vomiting. Patient started on IV normal saline and repeat creatinine down to 1.2. Patient with good urine output. BUN/creatinine monitored throughout hospital stay, avoided nephrotoxins, strict I's and O's monitored. (4) Leukocytosis Likely stress related, no signs of active infection. CBC monitor.. (5) Ureterolithiasis As seen on CT scan of the abdomen, continue IV normal saline, I will start the patient on Flomax to aid in the passage of the kidney stone. Urinalysis positive for red blood cells. Strain urine. (6) Uncontrolled hypertension The patient had very elevated blood pressure with a systolic blood pressure in the 160s. BRANT inhibitor initially held due to acute kidney injury. The patient 's metoprolol and amlodipine was continued with posterior adequate control blood pressure. BRANT inhibitor will be resumed upon patient's discharge. (7) Hyperlipidemia On statin.. (8) CAD (coronary artery disease) Held aspirin given possibility of surgical procedure to be needed, BRANT inhibitor , continue beta ivett. The patient asymptomatic. (9) hyperglycemia Patient had elevated blood sugars in the 150s and 160s. The patient uncertain SSI with insulin NovoLog and Accu-Cheks monitored. Hyperglycemia likely due to stress. 11 A1c checked and pending. Discussed with patient to follow-up with PMD for result. GI prophylaxis: PPI. DVT prophylaxis: SCDs Pt Condition on Discharge: Stable Discharge Disposition: Discharge Home Discharge Time: > 30 minutes Discharge Instructions DIET: Follow Instructions for: Heart Healthy Diet Activities you can perform: Regular-No Restrictions Follow up Referrals: PCP Follow-up hemoglobin A1c pending New Medications: Tramadol (Tramadol) 50 Mg Tab 50 MG PO Q6H PRN PAIN #20 Ref 0 TAB Continued Medications: Amlodipine (Norvasc) 5 Mg Tab 5 MG PO DAILY Blood Pressure Management #30 Ref 0 TAB Aspirin (Aspirin) 81 Mg Chew 81 MG CHEW DAILY Ref 0 TAB Candesartan (Candesartan) 32 Mg Tab 32 MG PO DAILY Blood Pressure Management #30 Ref [address] (Nexium) 40 Mg Capdr 40 MG PO DAILY Ref 0 CAP Metoprolol Succinate ER 24 HR (Metoprolol Succinate ER 24 HR) 25 Mg Tab 25 MG PO DAILY #30 Ref 0 TAB Rosuvastatin (Crestor) 10 Mg Tab 10 MG PO HS Cholesterol Management #30 Ref 0 TAB Chirag Vale MD Aug 21, 2016 11:33
[2016-08-21 21:26] LABS: HEMOGLOBIN A1a 1.1 %; HEMOGLOBIN A1b 0.9 %; HEMOGLOBIN Ao 85.7 %; HEMOGLOBIN F 0.8 %; HEMOGLOBIN LA1C 1.7 %; HEMOGLOBIN P3 3.5 %
== END 2016-08-21 12:30 | disposition home or self-care (01) ==
LOC: PHED 00:34 → PHEDA 02:51 → PH3A 07:49
PROVIDERS: ADMIT Hospitalist; ATTEND Hospitalist
DX: R10.31 Right lower quadrant pain (principal); N17.9 Acute kidney failure, unspecified; R79.89 Other specified abnormal findings of blood chemistry; E86.0 Dehydration; R94.31 Abnormal electrocardiogram [ECG] [EKG]; N13.2 Hydronephrosis with renal and ureteral calculous obstruction; R73.9 Hyperglycemia, unspecified; R63.0 Anorexia; D72.829 Elevated white blood cell count, unspecified; I25.10 Atherosclerotic heart disease of native coronary artery without angina pectoris; I10 Essential (primary) hypertension; E78.00 Pure hypercholesterolemia, unspecified; E78.5 Hyperlipidemia, unspecified; I25.2 Old myocardial infarction; Z79.899 Other long term (current) drug therapy; Z79.82 Long term (current) use of aspirin
CPT/HCPCS: 74176; 80048; 80053; 81001; 82550; 82552; 82948; 83036; 83690; 84484; 85025; 85027; 93005; 96361; 96374; 96375; 96376; 99291; G0378; J1170; J1885; J2405; J7030